=== PATIENT | female | born 1970 | race Caucasian/White ===

== ENCOUNTER → 2018-05-06 | Outpatient (CLI) | payer OTHER ==
[~2018-05-06] MED LIST: AZI250 PO; KET10 PO; LORA-630 PO
--- NOTE | 2018-05-06 14:11 | RADIOLOGY IMAGING REPORT ---
FACILITY: [facility] [place] PATIENT NAME: UNA ALTAMIRANO : [id number] MR: [id number] V: [id number] EXAM DATE: [id number] ORDERING PHYSICIAN: SUNNY COLLIER TECHNOLOGIST: Digna Chavira PROCEDURE:BILATERAL DIGITAL SCREENING MAMMOGRAM WITH CAD ASSISTED INTERPRETATION & 3D TOMOSYNTHESIS COMPARISON:Prior mammograms dated 09/04/16 INDICATIONS:screening FINDINGS: The breasts are extremely dense which lowers the sensitivity of mammography. The parenchymal pattern has remained stable allowing for difference in mammographic technique & patient positioning. DIAGNOSTIC CATEGORY 1--NEGATIVE. RECOMMENDATIONS: ROUTINE MAMMOGRAM AND CLINICAL EVALUATION. IMPRESSION: BIRADS 1: Negative. No significant abnormality is seen. Dictated by: Grace Pratt M.D. on 05/06/2018 at 9:36 Transcribed by: [email or web address] on 05/06/2018 at 12:49 Approved by: Grace Pratt M.D. on 05/06/2018 at 14:10 [facility]
== END ==
LOC: MAMO 01:13
PROVIDERS: ATTEND Family Medicine
DX: Z12.31 Encounter for screening mammogram for malignant neoplasm of breast (principal)
CPT/HCPCS: 77063; 77067